=== PATIENT | male | born 1970 | race Caucasian/White ===

== ENCOUNTER 2021-05-24 12:37 | Emergency (ER) | payer OTHER, SELFPAY ==
--- NOTE | ~2021-05-24 | CT_ITS ---
EXAMINATION: CTA chest PE protocol DATE: 05/24/2021 18:53 INDICATION: Pulmonary embolism. COVID positive. TECHNIQUE: Computed tomography (CT) pulmonary angiogram of the chest was performed with 100 mL Omnipa que-350 intravenous contrast. Additional 3D reconstructions utilizing coronal maximum intensity proje ction (MIP) were performed. Automated exposure control and iterative reconstruction technique were em ployed. The dose-length product was 719.07 mGy-cm. COMPARISON: None FINDINGS: Adequate but suboptimal contrast opacification of the pulmonary arteries. There is moderate streak ar tifact from dense contrast in the superior vena cava and right atrium. Mild to moderate scattered res piratory motion artifact. Together this results in significantly decreased sensitivity in the smaller subsegmental arteries at the lung bases in the segmental and subsegmental pulmonary arteries in the upper lung zones. No definitive pulmonary embolism identified. There are patchy groundglass opacities scattered throughout both lungs consistent with COVID pneumonia. No pleural effusion or pneumothorax . Heart size is normal. No pericardial effusion. Thoracic aorta is normal in caliber with no dissecti on. No pathologically enlarged thoracic visualized upper abdomen is unremarkable. lymphadenopathy. Ch ronic T12 compression fracture with one third anterior vertebral body height loss. Additional old hea led right clavicle fracture deformity. IMPRESSION: 1. No definite pulmonary motion. Sensitivity decreased in the subsegmental pulmonary arteries as well as the segmental pulmonary arteries in the upper lung zones due to combination of suboptimal contras t bolus, streak artifact and respiratory motion. 2. Extensive patchy bilateral lung disease consistent with COVID pneumonia. Reviewed, dictated and finalized at location A. IMPRESSION: 1. No definite pulmonary motion. Sensitivity decreased in the subsegmental pulm onary arteries as well as the segmental pulmonary arteries in the upper lung zo jo due to combination of suboptimal contrast bolus, streak artifact and respir atory motion. 2. Extensive patchy bilateral lung disease consistent with COVID pneumonia.
--- NOTE | ~2021-05-24 | XR_ITS ---
EXAMINATION: XR chest 2V DATE: 05/24/2021 13:14 INDICATION: COVID-19 pneumonia. TECHNIQUE: Frontal and lateral views of the chest were obtained. COMPARISON: None. FINDINGS: There are patchy airspace opacities in all lung zones bilaterally. No pleural effusion or p neumothorax. The heart size is normal. There is an old healed fracture of right clavicle. IMPRESSION: 1. Diffuse lung disease, consistent with COVID-19 pneumonia. Reviewed, dictated and finalized at location A.
[2021-05-24 12:59] VITALS: BP 134/75; PULSE 97; RESP 97; TEMP 37.1; O2SAT 97
--- NOTE | 2021-05-24 13:03 | ECG_ITS ---
Measurements Intervals [place] Rate: 101 P: 5 NH: 138 QRS: 11 QRSD: 81 T: 14 QT: 314 QTc: 408 Interpretive Statements SINUS TACHYCARDIA DELAYED PRECORDIAL R/S TRANSITION BORDERLINE T WAVE ABNORMALITY- INFERIOR LEADS BORDERLINE ECG Electronically Signed On 05-24-2021 13:42:15 CDT by Thong Magana D.O.
[2021-05-24 13:18] LABS: Basophils Percent Auto 0.3 % (0.2-1.2); Hematocrit 46.5 % (42.0-52.0); Hemoglobin 15.1 g/dL (14.0-18.0); Immature Granulocyte Percent A 2.6 % (0-0.5); Lymphocytes Absolute Auto 1.14 K/mm3 (0.9-3.2); Lymphocytes Percent Auto 14.6 % (18.3-44.2); Mean Corpuscular HGB Conc 32.5 g/dl (32-36); Mean Corpuscular Hemoglobin 29.5 pg (26-34); Mean Platelet Volume 9.5 fl (7.4-10.4); Monocytes Absolute Auto 0.5 K/mm3 (0.1-0.6); Monocytes Percent Auto 6.5 % (2.6-8.5); Neutrophils Absolute Auto 5.9 K/mm3 (1.3-6.7); Platelet Count Result 180 k/mm3 (150-375); Red Blood Count 5.11 M/mm3 (4.6-6.20); Red Cell Distribution Width 13.9 % (11.5-14.5); White Blood Count 7.8 K/mm3 (4.5-10.0)
[2021-05-24 13:43] LABS: Alanine Aminotransferase 67 U/L (4-50); Albumin Level 3.9 g/dL (3.5-5.1); Alkaline Phosphatase 117 U/L (38-126); Anion Gap 9 mmol/L (8-16); Aspartate Amino Transferase 54 U/L (17-59); Bilirubin,Total 0.6 mg/dL (0.2-1.3); Blood Urea Nitrogen 18 mg/dL (9-20); Calcium 8.2 mg/dL (8.4-10.2); Carbon Dioxide 25 mmol/L (22-30); Chloride 92 mmol/L (98-107); Estimated CRCL calculation 95 ml/min; Estimated Glomerular Filt Rate > 60; Glucose 107 mg/dL (65-110); Sodium 126 mmol/L (137-145)
[2021-05-24 14:57] VITALS: BP 125/78; PULSE 104; RESP 18; TEMP 37.8; O2SAT 96
[2021-05-24 16:14] VITALS: BP 134/88; PULSE 102; RESP 24; O2SAT 100
[2021-05-24] MEDS: SODIUM CHLORIDE 0.9% IV 1,000 ML 999 ML IV CONT (17:35)
[2021-05-24] MEDS: FAMOTIDINE 20 MG/2 ML VIAL IV PUSH (17:35)
[2021-05-24 18:16] LABS: INR 0.9; Prothrombin Time 12.1 Seconds (11.1-14.7)
[2021-05-24 18:17] LABS: Partial Thromboplastin Time 31.2 SECONDS (22.3-36.8)
[2021-05-24 18:19] LABS: D Dimer 0.49 ug/mL (<0.48)
--- NOTE | 2021-05-24 18:27 | ED.GENADULT ---
HPI - General Adult General Chief complaint: Weakness Stated complaint: COVID +, weakness Time Seen by Provider: 05/24/21 16:27 Source: patient and RN notes reviewed Mode of arrival: ambulatory Limitations: no limitations History of Present Illness HPI narrative: Patient is a 50-year-old male who presents to emergency department for evaluation of bee sting to the posterior scalp while mowing the lawn just prior to arrival presents with diffuse itching and irritation and swelling of the lip has taken 50 mg of Benadryl just prior to arrival appears uncomfortable on arrival but not distressed Related Data Home Medications Medication Instructions Recorded Confirmed rosuvastatin [Crestor] 10 mg PO DAILY 05/24/21 zolpidem [Ambien] 10 mg PO HS PRN 05/24/21 Allergies Allergy/AdvReac Type Severity Reaction Status Date / Time No Known Allergies Allergy Verified 05/24/21 17:34 Review of Systems Review of Systems: All systems reviewed & are unremarkable except as noted in HPI and below PMFSH Social History Social History (Updated 05/24/21 @ 18:28 by Ray Iglesias PA-C) Smoking status: Never smoker Exam Narrative: GENERAL: Well-appearing, well-nourished, and in no acute distress. HEAD: Normocephalic, atraumatic. EYES: PERRLA and EOMI. ENT: Nares clear, no rhinorrhea or epistaxis. Mucous membranes moist. Oropharynx without tonsillar hypertrophy exudate or other lesions. No angioedema in the oropharynx NECK: Supple. No adenopathy or masses. No stridor CHEST: Clear to auscultation. No respiratory distress. No wheezes rales or rhonchi HEART: Regular rate and rhythm. No murmur heard. Normal peripheral pulses. EXTREMITIES: Normal range of motion. No edema. SKIN: Warm, dry, slight irritation of the posterior scalp NEURO: No focal deficits. Alert and oriented x3. PSYCH: Normal mood and affect. Course Course Emergency Course: Patient in the room in no distress aware of case findings treatment plan and diagnosis agreeing to follow-up as instructed or to return if symptoms worsen or concerns Vital Signs Vital signs: Vital Signs Temperature 98.8 F 05/24/21 12:59 Pulse Rate 97 05/24/21 12:59 Respiratory Rate 97 H 05/24/21 12:59 Blood Pressure 134/75 05/24/21 12:59 Pulse Oximetry 97 05/24/21 12:59 Temperature 100.0 F H 05/24/21 14:57 Pulse Rate 102 H 05/24/21 16:14 Respiratory Rate 24 H 05/24/21 16:14 Blood Pressure 134/88 05/24/21 16:14 Pulse Oximetry 100 05/24/21 16:14 Medical Decision Making MDM Narrative Medical decision making narrative: Patient presented after bee sting was evaluated medicated feeling much better at this time observed and felt appropriate for outpatient reevaluation given his marked improvement provided with reasons to return Vital Signs Vital Signs: Vital Signs Temperature 98.8 F 05/24/21 12:59 Pulse Rate 97 05/24/21 12:59 Respiratory Rate 97 H 05/24/21 12:59 Blood Pressure 134/75 05/24/21 12:59 Pulse Oximetry 97 05/24/21 12:59 Temperature 100.0 F H 05/24/21 14:57 Pulse Rate 102 H 05/24/21 16:14 Respiratory Rate 24 H 05/24/21 16:14 Blood Pressure 134/88 05/24/21 16:14 Pulse Oximetry 100 05/24/21 16:14 Lab Data Result diagrams: 05/24/21 13:10 05/24/21 13:10 Labs: Lab Results 05/24/21 05/24/21 05/24/21 Range/Units 13:10 13:10 17:55 WBC 7.8 (4.5-10.0) K/mm3 RBC 5.11 (4.6-6.20) M/mm3 Hgb 15.1 (14.0-18.0) g/dL Hct 46.5 (42.0-52.0) % MCV 91.0 (80-100) fl MCH 29.5 (26-34) pg MCHC 32.5 (32-36) g/dl RDW 13.9 (11.5-14.5) % Plt Count 180 (150-375) k/mm3 MPV 9.5 (7.4-10.4) fl Immature Gran % (Auto) 2.6 H (0-0.5) % Neut % (Auto) 76.0 H (45.5-73.1) % Lymph % (Auto) 14.6 L (18.3-44.2) % [place] % (Auto) 6.5 (2.6-8.5) % Eos % (Auto) 0.0 (0-4.4) % Baso % (Auto) 0.3 (0.2-1.2) % Lymph # (Auto) 1.14 (0.9-3.2) K/mm
[2021-05-24 19:01] VITALS: BP 134/73; PULSE 93; RESP 16; O2SAT 100
--- NOTE | 2021-05-24 19:01 | PC.NURSE ---
report to poncho giles.
--- NOTE | 2021-05-24 19:22 | ED.GENADULT ---
HPI - General Adult General Chief complaint: Weakness Stated complaint: COVID +, weakness Time Seen by Provider: 05/24/21 16:27 Source: patient, EMS and RN notes reviewed Mode of arrival: EMS Limitations: no limitations History of Present Illness HPI narrative: Patient is a 50-year-old male who presents with weakness shortness of breath cough and URI symptoms positive for COVID-19 patient states that his symptoms have worsened he has been taking [id number] medications with minimal improvement denies any history of respiratory disease denies vomiting or diarrhea patient notes he has continued to work despite being Covid positive and on arrival does not appear distressed patient does appear ill [place] and [place] noted is continuing to work despite his COVID-19 diagnosis Related Data Home Medications Medication Instructions Recorded Confirmed rosuvastatin [Crestor] 10 mg PO DAILY 05/24/21 zolpidem [Ambien] 10 mg PO HS PRN 05/24/21 Allergies Allergy/AdvReac Type Severity Reaction Status Date / Time No Known Allergies Allergy Verified 05/24/21 17:34 Review of Systems Review of Systems: All systems reviewed & are unremarkable except as noted in HPI and below PMFSH Social History Social History Smoking status: Never smoker Exam Narrative: GENERAL: Ill-appearing, well-nourished, and in no acute distress. HEAD: Normocephalic, atraumatic. EYES: PERRLA and EOMI. ENT: Nares clear, no rhinorrhea or epistaxis. Mucous membranes moist. CHEST: Clear to auscultation. No respiratory distress. Diffuse crackles HEART: Regular rate and rhythm. No murmur heard. Normal peripheral pulses. EXTREMITIES: Normal range of motion. No edema. SKIN: Warm, dry, no rash. NEURO: No focal deficits. Alert and oriented x3. PSYCH: Normal mood and affect. Course Course Emergency Course: Patient with Covid pneumonia no hypoxemia with Covid pneumonia felt appropriate for outpatient reevaluation afebrile nontoxic-appearing at this time without emesis or diarrhea no PE seen on CTA felt appropriate for outpatient reevaluation will be sent home and placed off work so he can effectively self quarantine he has been provided with reasons to return Vital Signs Vital signs: Vital Signs Temperature 98.8 F 05/24/21 12:59 Pulse Rate 97 05/24/21 12:59 Respiratory Rate 97 H 05/24/21 12:59 Blood Pressure 134/75 05/24/21 12:59 Pulse Oximetry 97 05/24/21 12:59 Temperature 100.0 F H 05/24/21 14:57 Pulse Rate 93 05/24/21 19:01 Respiratory Rate 16 05/24/21 19:01 Blood Pressure 134/73 05/24/21 19:01 Pulse Oximetry 100 05/24/21 19:01 Medical Decision Making MDM Narrative Medical decision making narrative: Patient with COVID-19 in the room at this time aware of case findings treatment plan and diagnosis will be treated symptomatically advised to follow with primary care to self quarantine and to discontinue working until he has had 10 days of quarantine after the onset of his symptoms he is also been advised to get a home pulse oximeter to monitor his oxygenation he is nontoxic-appearing at this time and felt appropriate for outpatient reevaluation Vital Signs Vital Signs: Vital Signs Temperature 98.8 F 05/24/21 12:59 Pulse Rate 97 05/24/21 12:59 Respiratory Rate 97 H 05/24/21 12:59 Blood Pressure 134/75 05/24/21 12:59 Pulse Oximetry 97 05/24/21 12:59 Temperature 100.0 F H 05/24/21 14:57 Pulse Rate 93 05/24/21 19:01 Respiratory Rate 16 05/24/21 19:01 Blood Pressure 134/73 05/24/21 19:01 Pulse Oximetry 100 05/24/21 19:01 Lab Data Result diagrams: 05/24/21 13:10 05/24/21 13:10 Labs: Lab Results 05/24/21 05/24/21 05/24/21 Range/Units 13:10 13:10 17:55 WBC 7.8 (4.5-10.0) K/mm3 RBC 5.11 (4.6-6.20) M/mm3 Hgb 15.1 (14.0-18.0) g/dL Hct 46.5 (42.0-52.0) % MCV
[2021-05-24 19:49] VITALS: BP 161/86; PULSE 95; RESP 16; O2SAT 97
== END 2021-05-24 19:50 | disposition home or self-care (01) ==
PROVIDERS: Emergency Medicine; Emergency Medicine Emergency Medical Services; Emergency Provider Emergency Medicine
DX: U07.1 COVID-19 (principal); J12.82 Pneumonia due to coronavirus disease 2019
CPT/HCPCS: 36415; 71046; 71275; 80053; 85025; 85380; 85610; 85730; 93005; 96361; 96374; 96375; 99284; J0131; J7030; Q9967